=== PATIENT | male | born 1975 | race Caucasian/White ===

== ENCOUNTER 2016-06-05 21:11 | Emergency (ER) | payer BC, OTHER ==
[2016-06-05 21:21] VITALS: RESP 20; TEMP 99.9; O2SAT 98
[2016-06-05 22:25] VITALS: BP 135/81; PULSE 72
== END 2016-06-05 22:10 | disposition home or self-care (01) ==
LOC: ED 21:11
DX: S83.92XA Sprain of unspecified site of left knee, initial encounter (principal); Y93.68 Activity, volleyball (beach) (court)
CPT/HCPCS: 73560; 99282; A6446